=== PATIENT | male | born 1965 | race African-American/Black ===

== ENCOUNTER → 2021-09-06 | Day surgery (SDC) | payer OTHER ==
[~2021-09-06] VITALS: Ht 188 cm; Wt 133.8 kg
[~2021-09-06] MED LIST: ALPR0.5T PO; AMLO-186 PO; AMLO-187 PO; AMOX1TAB61 PO; CARV12.53 PO; DOCU-148 PO; DOXY100T PO; FURO40TA4 PO; HYDR-2679 PO; HYDR-2761 PO; HYDR50TA9 PO; IV RINGERS,LACTATED 1000ML 1,000 ML IV SCH; LACT1CAP19 PO; LISI-130 PO; MELO15TA6 PO; METO-239 PO; METO25TA4 PO; METO50TA6 PO; OLME20TA17 PO; POLY17PO52 PO; PROPOFOL 10 MG/ML (20ML) VIAL. IV ONE; WARF-31 PO; WARF5TAB2 PO
[2021-09-06 08:52] VITALS: BP 146/87
--- NOTE | 2021-09-06 09:37 | PDOC2 ---
CONSULT Date of Consult Date of Consult DATE: 09/06/21 TIME: 09:34 Reason for Consult Reason for Consult: CRC screening History of Present Illness Reason for Visit: 56 year old male is seen with above. He has regular bowel movements without diarrhea or constipation. No melena and/or hematochezia is noted. Family history is negative for colon cancer or polyps. Weight and appetite are stable. He oth erwise is without additional complaints. Past Medical History Cardiovascular: HTN, Hyperlipidemia Pulmonary: COPD, Pulmonary embolus CENTRAL NERVOUS SYSTEM: Other GI: GERD Heme/Onc: Cancer, Other Psych: Anxiety Musculoskeletal: Osteoarthritis Rheumatologic: No pertinent hx Infectious disease: Other Past Surgical History Past Surgical History: Arthroscopy Family History Family History: Heart Disease Social History <1 pack per day ALCOHOL: other Drugs: Cocaine, Marijuana, Other Lives: with Family Domestic Violence: Neg Current Medications Current Medications Current Medications Ringer's Solution 1,000 ml @ 100 mls/hr Q10H IV Last administered on 09/06/21at 08:45; Start 09/06/21 at 08:45; Stop 09/07/21 at 08:44 Propofol (Diprivan) 200 mg STK-MED ONCE IV ; Start 09/06/21 at 09:24; Stop 09/06/21 at 09:24; Status DC Propofol (Diprivan) 200 mg STK-MED ONCE IV ; Start 09/06/21 at 09:30; Stop 09/06/21 at 09:30; Status DC Active Scripts Active Culturelle (Lactobacillus Rhamnosus Gg) 1 Each Cap.sprink 1 Cap PO BID 30 Days Dok (Docusate Sodium) 100 Mg Capsule 100 Mg PO PRN DAILY PRN 28 Days Reported Furosemide 40 Mg Tablet 1 Tab PO DAILY Warfarin Sodium 5 Mg Tablet 5 Mg PO DAILY Carvedilol 12.5 Mg Tablet 12.5 Mg PO BID Lisinopril 40 Mg Tablet 1 Tab PO DAILY Amlodipine Besylate 5 Mg Tablet 5 Mg PO DAILY Metoprolol Tartrate 25 Mg Tablet 1 Tab PO BID Allergies Allergies: Coded Allergies: No Known Drug Allergies (Unverified , 09/06/21) ROS Cardiovascular: yes Palpitations Physical Exam General: Oriented X3, Cooperative Lungs: Clear to auscultation Heart: Regular rate, Normal S1, Normal S2 Abdomen: Normal bowel sounds, Soft, No tenderness Vitals VITALS Vital Signs Date Time Temp Pulse Resp B/P (MAP) Pulse Ox O2 Delivery O2 Flow Rate FiO2 09/06/21 08:52 98.1 75 20 98 98.1 Assessment/Plan Assessment/Plan CRC screening- is recommended at this time. R/B discussed with patient who is willing to proceed. LEISA GAN MD September 06, 2021 09:37
[2021-09-06 10:20] VITALS: BP 107/58
== END | disposition home or self-care (01) ==
LOC: ENDOS 08:23
PROVIDERS: ATTEND Internal Medicine Gastroenterology
DX: Z12.11 Encounter for screening for malignant neoplasm of colon (principal); K64.0 First degree hemorrhoids; K63.89 Other specified diseases of intestine; I10 Essential (primary) hypertension; E78.00 Pure hypercholesterolemia, unspecified; J44.9 Chronic obstructive pulmonary disease, unspecified; M19.90 Unspecified osteoarthritis, unspecified site; K21.9 Gastro-esophageal reflux disease without esophagitis; F41.9 Anxiety disorder, unspecified; E11.9 Type 2 diabetes mellitus without complications; F17.210 Nicotine dependence, cigarettes, uncomplicated; Z79.01 Long term (current) use of anticoagulants; Z79.899 Other long term (current) drug therapy; Z98.890 Other specified postprocedural states
CPT/HCPCS: 45378; J2704